=== PATIENT | female | born 1950 | race Caucasian/White ===

== ENCOUNTER → 2018-02-07 | Outpatient (CLI) | payer MEDICARE, OTHER ==
--- NOTE | 2018-02-07 17:54 | RADIOLOGY REPORT (SQ) ---
EXAM DESCRIPTION: MRI LUMBAR SPINE WITHOUT COMPLETED DATE/TIME: 02/07/2018 2:27 pm REASON FOR STUDY: LUMBAR PAIN M54.16 RADICULOPATHY, LUMBAR REGION COMPARISON: None. TECHNIQUE: Sagittal and Axial imaging includes T1, T2, STIR and gradient echo sequences. Coronal T2/ HASTE imaging. LIMITATIONS: None. FINDINGS: VISUALIZED UPPER ABDOMEN: Limited evaluation. No acute or suspicious findings suggested. SEGMENTATION: No transitional anatomy. The lowest well-developed disc space is labeled L5-S1. ALIGNMENT: Anatomic. VERTEBRAE: Chronic appearing 50% anterior compression of L1 BONE MARROW: Normal. No marrow replacement or reactive changes. DISC SIGNAL: Decreased T2 weighted intervertebral disc signal throughout the lumbar spine POSTERIOR ELEMENTS: Generally intact. No pars defect evident. HARDWARE: None in the spine. CORD AND CONUS: Normal in size and signal intensity. Conus at the L1-2 level. SOFT TISSUES: No aortic aneurysm seen. No bulky retroperitoneal adenopathy or mass. No paraspinal mas s or fluid. T11-12: Mild diffuse posterior disc bulging is present with mild facet hypertrophy. No central or f oraminal stenosis. T12-L1: Broad diffuse posterior disc bulging and bony spurring is present. This finding along with moderate facet and ligament hypertrophy causes mild central canal narrowing best shown on axial T2 im age 5 and sagittal T2 image 8. Mild bilateral foraminal narrowing without exiting T12 nerve root imp ingement. L1-L2: Broad diffuse posterior disc bulging with left paracentral protrusion, along with moderate fac et and ligament hypertrophy causes mild central canal stenosis with flattening of the thecal sac into a triangular shape. This is best shown on axial T2 image 9. There is mild bilateral inferior alley inal narrowing left greater than right without definite exiting L1 nerve root impingement. L2-L3: No central or foraminal narrowing. Moderate facet hypertrophy bilaterally. L3-L4: No central or foraminal narrowing. Moderate facet hypertrophy bilaterally. L4-L5: No central or foraminal narrowing. Moderate facet hypertrophy bilaterally. L5-S1: No central or foraminal narrowing. Moderate facet hypertrophy bilaterally. SACRUM: Visualized upper sacrum intact. OTHER: No other significant findings. IMPRESSION: Chronic appearing 50% L1 vertebral body compression. Diffuse lumbar facet arthropathy. Mild central canal stenosis at T12-L1 and L1-2. TECHNICAL DOCUMENTATION: JOB ID: [id number]- All Rights Reserved Reading location - IP/workstation name: [email or web address]
== END ==
LOC: RAD 13:33
PROVIDERS: ATTEND Physician Assistant
DX: M54.16 Radiculopathy, lumbar region (principal)
CPT/HCPCS: 72148